=== PATIENT | female | born 1980 | race Caucasian/White ===

== ENCOUNTER → 2019-01-05 | Outpatient (CLI) | payer BC ==
--- NOTE | 2019-01-05 08:19 | CT ---
EXAMINATION TYPE: CT sinus wo con DATE OF EXAM: 01/05/2019 COMPARISON: None HISTORY: Chronic sinusitis CT DLP: 609.[address] of the paranasal sinuses was performed in the axial and coronal planes. Bone and soft tissue settings are submitted. The paranasal sinuses demonstrate normal aeration and development. Large air-fluid level seen in left maxillary sinus with a small air-fluid level identified within the right maxillary sinus. Small air-fluid level within the sphenoid sinus. There is associated severe mucosal thickening involving the ethmoid air cells and frontal sinuses. There is obstruction of the bilateral ostiomeatal units. Underlying polyposis is difficult to exclude . The nasal septum is midline. No bony destructive changes are seen within the field of view. IMPRESSION: 1. Severe pansinusitis with air-fluid levels noted as discussed above. Underlying polyposis is diffic ult to exclude.
== END | disposition home or self-care (01) ==
LOC: RADCTMAIN 07:51
PROVIDERS: ATTEND Otolaryngology
DX: J32.4 Chronic pansinusitis (principal)
CPT/HCPCS: 70486